=== PATIENT | male | born 1995 | race African-American/Black ===

== ENCOUNTER 2025-09-29 02:30 | Emergency (ER) | payer SELFPAY ==
[2025-09-29 02:29] VITALS: BP 107/72; PULSE 107; RESP 19; TEMP 36.6; O2SAT 100
--- NOTE | 2025-09-29 02:44 | ECG_ITS ---
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
--- NOTE | 2025-09-29 03:32 | ED.GENADULT ---
HPI - General Adult General Chief complaint: Overdose Stated complaint: unresponsive, not breathing upon EMS arrival Time Seen by Provider: 09/29/25 03:19 History of Present Illness HPI narrative: Patient 30-year-old gentleman who presents emergency department with chief complaint of overdose patient states that he took a Percocet and had some drinking tonight patient states that he was given Narcan by EMS but reports that he now feels fine Review of Systems Review of Systems: A 10 system review of systems was completed on the patient and is negative except for what is stated in the HPI. Nursing and ancillary documentation was reviewed. Exam Narrative: GENERAL: Well-appearing, well-nourished, and in no acute distress. HEAD: Normocephalic, atraumatic. EYES: PERRLA and EOMI. ENT: Nares clear, no rhinorrhea or epistaxis. Mucous membranes moist. NECK: Supple. CHEST: Clear to auscultation. No respiratory distress. HEART: Regular rate and rhythm. No murmur heard. Normal peripheral pulses. ABDOMEN: Soft, nontender, nondistended, normal active bowel sounds. EXTREMITIES: Normal range of motion. No edema. SKIN: Warm, dry, no rash. NEURO: No focal deficits. Alert and oriented x3. PSYCH: Normal mood and affect. Course Vital Signs Vital signs: Vital Signs Temperature 36.6 C 09/29/25 02:29 Pulse Rate 107 H 09/29/25 02:29 Respiratory Rate 19 09/29/25 02:29 Blood Pressure 107/72 09/29/25 02:29 Pulse Oximetry 100 09/29/25 02:29 Oxygen Delivery Room Air 09/29/25 02:29 Temperature 36.6 C 09/29/25 02:29 Pulse Rate 107 H 09/29/25 02:29 Respiratory Rate 19 09/29/25 02:29 Blood Pressure 107/72 09/29/25 02:29 Pulse Oximetry 100 09/29/25 02:29 Oxygen Delivery Room Air 09/29/25 02:29 MDM Differential Diagnosis Differential Diagnosis: Accidental opiate overdose Discharge Plan Discharge Clinical Impression: Accidental opiate poisoning Patient Disposition: Home Condition: Stable Instructions: Antibiotic Form, Adult Overdose (ED), Narcotic Use Disorder (ED) Patient Language: Indonesian Prescriptions: New naloxone [Narcan] 4 mg/actuation spray,non-aerosol 4 mg intranasal Q2-3M PRN (Reason: opioid overdose) Qty: 2 0RF Rx Instructions: spray 1 dose into ONE nostril; alternate nostrils w each dose until help arrives Time of Disposition: 03:36
[2025-09-29 03:35] VITALS: BP 97/46; PULSE 96; RESP 20; O2SAT 100
--- OUTSIDE RECORDS SUMMARY | 2025-09-29 03:49 | XMS_ITS | Patient Health Record ---
Author Organization [facility] Address [address] [place] [address] Phone [phone] Support Name Relationship Address Phone Krupa Velezmontse Self - patient is the insured [address] [place] [address] [phone] Reason For Referral No Information Social History Sex Observation Social History Observation Description Sex Observation Male Social History Drugs/Alcohol: Social Info Question Answer Notes Alcohol Screen (Audit-C) Did you have a drink containing alcohol in the past year? Yes How often did you have a drink containing alcohol in the past year? Monthly or less (1 point) How many drinks did you have on a typical day when you were drinking in the past year? 3 or 4 drinks (1 point) How often did you have 6 or more drinks on one occasion in the past year? Less than monthly (1 point) Points 3 Interpretation Negative Problems Problem Type SNOMED Code ICD Code Dates Problem Status W/U Status Risk Notes Problem Opioid dependence (92389306) Opioid use disorder, severe (F11.20) Added On: 018 Active confirmed Plan Of Treatment No Information Insurance Providers Payer Name Payer Address Payer Phone Subscriber Number Group Number Insured Name Patient Relationship to Insured Coverage Start Date Coverage End Date [address] [phone] [id number] Diane Velez Self - patient is the insured 7
--- OUTSIDE RECORDS SUMMARY | 2025-09-29 03:49 | XMS_ITS | Clinical Summary ---
Author Organization [facility] Address [address] [place] [id number] Care Team Providers Care Applications Processor Name Role Phone ParekhMichelle mcclellannne HELGA Primary Care Provider + [phone] Allergies No known active allergies Medications naproxen (NAPROSYN) 500 mg tablet Take 1 tablet (500 mg total) by mouth 2 (two) times a day with meals 30 tablet Active acetaminophen (TYLENOL) 500 mg tablet Take 1 tablet (500 mg total) by mouth every 6 (six) hours as needed for pain 30 tablet Active bacitracin 500 unit/gram ointment Apply topically 2 (two) times a day 120 g Active Active Problems No known active problems Encounters Date Type Department Care Team Description 08/03/2025 7:38 PM CDT - 08/03/2025 8:56 PM CDT Emergency [facility] Emergency Department [address] [place] [id number] Acute right ankle pain (Primary Dx); Hand pain, right; Wound infection Discharge Disposition: Discharge to home or self care from Last 3 Months Social History Tobacco Use Types Packs/Day Years Used Date Smoking Tobacco: Never Assessed Personal Safety Answer Date Recorded Have you ever been in or are you currently in a harmful physical or emotional relationship or is someone making you feel afraid or unsafe? 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 Gender Identity Not on file Sexual Orientation Not on file Last Filed Vital Signs Vital Sign Reading Time Taken Comments Blood Pressure 138/85 08/03/2025 8:54 PM CDT Pulse 83 08/03/2025 8:54 PM CDT Temperature 36.3 C (97.4 F) 08/03/2025 7:29 PM CDT Respiratory Rate 16 08/03/2025 8:54 PM CDT Oxygen Saturation 98% 08/03/2025 8:54 PM CDT Inhaled Oxygen Concentration - - Weight 53.6 kg (118 lb 2.7 oz) 08/03/2025 7:29 P M CDT Height 180.3 cm (5' 11) 08/03/2025 7:29 PM CDT Body Mass Index 16.48 08/03/2025 7:29 PM CDT Plan of Treatment Health Maintenance Due Date Last Done Comments Depression Screening 1996 Varicella Vaccines (1 of 2 - 13+ 2-dose series) 02/17/2009 Regular Well Visit/Exam 18-64 02/17/2014 HPV Vaccines (1 - 3-dose SCDM series) 02/17/2023 Covid-19 Vaccine (2 - 2024- season) 2025 05/20/2021 Influenza Vaccine (#1) 2025 DTaP/Tdap/Td Vaccine (7 - Td or Tdap) 06/12/2034 06/12/2024, 04/11/2017, 05/22/1997, Additional history exists Hepatitis B Screening Completed 1996 , 1996, 1996 Hepatitis C Screening Completed 05/28/2017 Pneumococcal vaccine <65 Aged Out No longer eligible based on patient's age to complete this topic Procedures Procedure Name Priority Date/Time Associated Diagnosis Comments XR ANKLE RIGHT 3 OR MORE VIEWS ED 08/03/2025 7:50 PM CDT XR HAND RIGHT 3 OR MORE VIEWS ED 08/03/2025 7:50 PM CDT HEPATITIS C ANTIBODY Routine 05/28/2017 1:02 AM CDT from Last 3 Months or Most Recently Relevant to Health Maintenance Results * XR Ankle Right 3+ views (08/03/2025 7:50 PM CDT) Anatomical Region Laterality Modality Lower Extremities, Ankle Right Compute d Radiography 08/03/2025 7:55 PM CDT Impressions 08/03/2025 7:55 PM CDT FINDINGS/IMPRESSION: No fracture dislocation or other acute abnormality is seen. Electronically signed by: Avelino Kaur M.D. Narrative 08/03/2025 7:55 PM CDT MEDICAL RECORDS NUMBER: [id number] PROCEDURE: XR ANKLE RIGHT 3 OR MORE VIEWS DATE: 08/03/2025 7:35 PM HISTORY: 30 years old Male. Fall VIEWS: 2 COMPARISON: None Procedure Note Avelino Kaur MD - 08/03/2025 MEDICAL RECORDS NUMBER: [id number] PROCEDURE: XR ANKLE RIGHT 3 OR MORE VIEWS DATE: 08/03/2025 7:35 PM HISTORY: 30 years old Male. Fall VIEWS: 2 COMPARISON: None IMPRESSION: FINDINGS/IMPRESSION: No fracture dislocation or other acute abnormality is seen. Electronically signed by: Avelino Kaur M.D. Cristina Walker NP IMG XR PROCEDURES Final Result * XR Hand Right 3+ views (08/03/2025 7:50 PM CDT) Anatomical Region Laterality Modality Upper Extremities, Hand Right Computed Radiography 08/03/2025 7:54 PM CDT Impressions 08/03/2025 7:54 PM CDT FINDINGS/IMPRESSION: No fracture dislocation or other acute abnormality is seen. Electronically signed by: Avelino Kaur M.D. Narrative 08/03/2025 7:54 PM CDT MEDICAL RECORDS NUMBER: [id number] PROCEDURE: XR HAND RIGHT 3 OR MORE VIEWS DATE: 08/03/2025 7:40 PM HISTORY: 30 years old Male. Fall VIEWS: 3 COMPARISON: None Procedure Note Avelino Kaur MD - 08/03/2025 MEDICAL RECORDS NUMBER: [id number] PROCEDURE: XR HAND RIGHT 3 OR MORE VIEWS DATE: 08/03/2025 7:40 PM HISTORY: 30 years old Male. Fall VIEWS: 3 COMPARISON: None IMPRESSION: FINDINGS/IMPRESSION: No fracture dislocation or other acute abnormality is seen. Electronically signed by: Avelino Kaur M.D. Cristina Walker NP IMG XR PROCEDURES Final Result * Hepatitis C antibody (05/28/2017 1:02 AM CDT) Hep C Ab NONREACT NONREACTIVE Comment: Siemens CentaurXP using HANS (chemiluminescent immunoassay) technology. NONREACTIVE: Antibodies to Hepatitis C not detected. This does not exclude early acute Hepatitis C infection, possibility of exposure to Hepatitis C, antibodies below detection limit, or to lack of antibody reactivity to the antigen used in this assay. EQUIVOCAL: Antibodies to Hepatitis C may or may not be present. Sample to be confirmed by real-time PCR method. REACTIVE: Antibodies to Hepatitis C detected. 05/28/2017 1:02 AM CDT 05/28/2017 1:07 AM CDT Narrative [facility] HISTORICAL RESULTS - 05/28/2017 2:26 AM CDT us Historical Provider LAB MICROBIOLOGY - GENERA L ORDERABLES Final Result [facility] HISTORICAL RESULTS from Last 3 Months or Most Recently Relevant to Health Maintenance Care Teams Applications Processor Relationship Specialty Start Date End Date Lyndsey Parekh NP [address] [address] [place] [address] PCP - General 08/30/20
--- OUTSIDE RECORDS SUMMARY | 2025-09-29 03:49 | XMS_ITS | Clinical Summary ---
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 Gender Identity Not on file Sexual Orientation Not on file Plan of Treatment Health Maintenance Due Date Last Done Comments Hepatitis C Virus (HCV) Screening 1996 Human Papillomavirus (HPV) Immunization (1 - 3-dose SCDM series) 02/17/2023 Influenza Immunization (#1) 2025 SARS-COV-2 Immunization ( season) 2025 Respiratory Syncytial Virus (RSV) Immunization (Adult) (1 - 1-dose 75+ series) 02/17/2071 Hepatitis B Immunization Completed 996, 1996, 1996 DTaP/Tdap/Td Immunization Discontinued 2016, 05/22/1997, 1996, Additional history exists TdaP Immunization Completed 04/11/2017 Meningococcal Immunization (ACWY) Aged Out No longer eligible based on patient's age to complete this topic Pneumococcal Immunization Combined Aged Out No longer eligible based on patient's age to complete this topic Rotavirus Immunization Aged Out No lo nger eligible based on patient's age to complete this topic
--- OUTSIDE RECORDS SUMMARY | 2025-09-29 03:49 | XMS_ITS | Data Portability ---
Author Organization [facility] Patricio Ailin Address [address] [place] [address] Care Team Providers Care Production Operations Engineer Name Role Phone KIERRA PAREKH Primary Care Provider [phone] Assessment No assessment recorded. Plan of Treatment Reminders Order Date Submit Date Provider Last Modified By Organization Details Last Modified Time Details Appointments None recorded. Lab None recorded. Referral None recorded. Procedures None recorded. Surgeries None recorded. Imaging None recorded. Medication Orders buprenorphi ne 8 mg-naloxone 2 mg sublingual film 2022 023 [id number], [address], [place], [id number], 3 18:08:52 sertraline 50 mg tablet 2021 022 [facility] #[id number], [address] [place], [place], [id number], 2 17:32:33 buprenorphi ne 8 mg-naloxone 2 mg sublingual film 2020 021 [facility] #[id number], [address], [place], [id number], 1 15:37:07 Zoloft 25 mg tablet 2020 021 [facility], [address] [place], [place], [id number], 17:31:55 Patient TargetsNo targets recorded. Patient Instructions Encounter Date Encounter Id Patient Instructions Last Modified By Organization Details Last Modified Time 11/16/2021 [id number] learning about mood disorders Not available 11/16/2021 10:36:49 I reveiwed the students written documentation. I reviewed and repeated jimenez components of the history and exam. Kierra Parekh MD Not available 11/16/2021 11:10:13 Reason for Referral None Reported. Results Created Date Observation Date Name Description Value Unit Range Abnormal Flag Note LastModifiedBy Organization Detail LastModifiedTime 06/08/2006/15/2023 COMPL IANCE DRUG PAULINA SIS, UR summary report (summary) FINAL ===== ===== ===== ===== ===== ===== ===== ===== ===== ===== ===== ===== ===== === TOXAS SURE COMP DRUG PAULINA SIS,U R ===== ===== ===== ===== ===== ===== ===== ===== ===== ===== ===== ===== ===== === Test Resul t Flag Units Drug Prese nt Benzo ylecg onine >4098 ng/mg creat Benzo ylecg onine is a metab olite of cocai ne; its prese nce indic ates use of this drug. Sourc e is most commo nly illic it, but cocai ne is prese nt in some topic al anest hetic solut ions. Carbo xy-TH C >820 ng/mg creat Carbo xy-TH C is a metab olite of tetra hydro canna binol (THC) . Sourc e of THC is most commo nly herba l marij uana or marij uana- based produ cts, but THC is also prese nt in a sched uled presc ripti on medic ation . Trace amoun ts of THC can be prese nt in hemp and canna bidio l (CBD) produ cts. This test is not inten ded to disti nguis h betwe en delta -9-te trahy droca nnabi nol, the predo minan t form of THC in most herba l or marij uana- based produ cts, and delta -8-te trahy droca nnabi nol. Bupre norph ine 70 ng/mg creat Norbu preno rphin e 137 ng/mg creat Sourc e of bupre norph ine is a sched uled presc ripti on medic ation . Norbu preno rphin e is an expec bryce metab olite of bupre norph ine. ===== ===== ===== ===== ===== ===== ===== ===== ===== ===== ===== ===== ===== === Test Resul t Flag Units Ref Range Creat inine 122 mg/dL >=20 ===== ===== ===== ===== ===== ===== ===== ===== ===== ===== ===== ===== ===== === Decla red Medic ation s: Medic ation list was not provi ded. ===== ===== ===== ===== ===== ===== ===== ===== ===== ===== ===== ===== ===== === For clini nita consu ltati on, pleas e call . ===== ===== ===== ===== ===== ===== ===== ===== ===== ===== ===== ===== ===== === Not Available [facility] ([facility]) [address], [place], [address], 06/15/2023 14:13:15 06/08/2006/15/2023 COMPL DIMPLE DRUG PAULINA SIS, UR pdf . Not Available [facility] ([facility]) [address], [place], [address], 06/15/2023 14:13:15 Result Notes None recorded. Problems Name Problem SNOMED Code Status Onset Date Resolution Date Notes Provider Name and Address Organization Details Recorded Time Opioid dependence 05037727 Active 022 Sav Purvis Attn: Agapitosylvain hightower,[address], [place], [address], [facility] 11:07:49 Problem Notes None recorded. Medical Equipment None Reported. Allergies No known drug allergies Medications Name Sig Start Date Stop Date Status Note LastModified by Organization Details LastModified Time amoxicill in 500 mg capsule TK ONE C PO Q 8 H TAT 07/26 completed Not Available Not Available Not Available acetamino phen 325 mg tablet TK 2 TS PO Q 6 H PRN P 07/26 completed Not Available Not Available Not Available clindamyc in HCl 300 mg capsule active Not Available Not Available Not Available ibuprofen 800 mg tablet 07/26 completed Not Available Not Available Not Available penicilli n V potassium 500 mg tablet TK 1 T PO BID 07/26 completed Not Available Not Available Not Available hydroxyzi ne HCl 50 mg tablet active Not Available Not Available No t Available acetamino phen 300 mg-codein e 30 mg tablet TK 1 T PO Q 4 H PRN P 07/26 completed Not Available Not Available Not Available amoxicill in 500 mg tablet TK 1 T PO Q 8 H TAT 07/26 completed Not Available Not Available Not Available ketorolac 10 mg tablet active Not Available Not Available Not Available sertralin e 25 mg tablet TAKE 1 TABLET BY MOUTH EVERY DAY active Not Available Not Available No t Available ibuprofen 600 mg tablet TAKE 1 TABLET BY MOUTH EVERY 6 HOURS NEEDED FOR PAIN active Not Available Not Available No t Available sertralin e 50 mg tablet Take 1 tablet every day by oral route. 03/21 completed Not Available Not Available Not Available doxycycli ne hyclate 100 mg tablet TAKE 1 TABLET BY MOUTH TWICE A DAY FOR 7 DAYS active Not Available Not Available No t Available amoxicill in 875 mg-potass ium clavulana te 125 mg tablet 07/26 completed Not Available Not Available Not Available buprenorp malu 8 mg-naloxo ne 2 mg sublingua l film DISSOLVE 1 FILM UNDER THE TONGUE EVERY DAY active pt informed he must submit urine for UDS prior to refill. He is to alert staff when done. Not Available Not Available Not Available ID NOW COVID-19 Test Kit TEST DIRECTED TODAY active Not Available Not Available No t Available Vitals Date Recorded Body height Body mass index (BMI) Body weight Body temperature Oxygen saturation Heart rate Systolic And Diastolic Provider Name and Address Organization Details Last Updated DateTime 2 177.8 cm 17.8 kg/m2 28171.9 5 g 98.8 [degF] 98 % 85 /min 118/58 mm[Hg] Norm Esquivel MA [facility] 2 09:34:44 Date Recorded Body height Body mass index (BMI) Body weight Heart rate Oxygen saturation Systolic And Diastolic Provider Name and Address Organization Details Last Updated DateTime 2 177.8 cm 16.9 kg/m2 58408.4 6 g 79 /min 98 % 100/58 mm[Hg] Helga Mcgill MA [facility] 2 16:55:35 Date Recorded Body height Body mass index (BMI) Body weight Body temperature Oxygen saturation Heart rate Systolic And Diastolic Provider Name and Address Organization Details Last Updated DateTime 3 177.8 cm 17.3 kg/m2 32230.8 3 g 97.7 [degF] 99 % 57 /min 103/62 mm[Hg] Lou Bran MA [facility] 3 12:22:45 Date Recorded Body height Body mass index (BMI) Body weight Body temperature Heart rate Oxygen saturation Systolic And Diastolic Provider Name and Address Organization Details Last Updated DateTime 2 177.8 cm 17.5 kg/m2 52639.2 7 g 98.6 [degF] 86 /min 99 % 130/72 mm[Hg] Ashley Suh CMA [place] - [facility] 2 17:38:46 Date Recorded Body height Body mass index (BMI) Body weight Heart rate Body temperature Systolic And Diastolic Provider Name and Address Organization Details Last Updated DateTime 1 177.8 cm 18.1 kg/m2 66384.0 4 g 58 /min 97.8 [degF] 104/48 mm[Hg] Rober Melodo [place] - [facility] 1 15:07:20 Social History Question Answer Notes LastModified by Organizat ion Details LastModified Time Tobacco Smoking Status Current Every Day Smoker France Brandt MA null, [place] - [facility] 06/24/2021 16:20:33 What Was The Date Of Your Most Recent Tobacco Screening? 06/08/2023 [email or web address] Information not available 06/08/2023 What Is Your Relationship Status? Single Information not available 06/24/2021 Do You Have Smoke And Carbon Monoxide Detectors In Your Home? Yes Information not available 06/24/2021 At What Age Did You Start Smoking Tobacco? 16 Information not available 09/27/2022 Are You Passively Exposed To Smoke? Yes Information no t available 06/24/2021 How Much Tobacco Do You Smoke? 0.5 PPD Information not available 09/27/2022 Sex: Unknown Functional Status Question Answer Note LastModified by Organizat ion Details LastModified Time Do you use any illicit or recreational drugs? Yes marijuana Information not available 09/27/2022 What is your level of alcohol consumption? None Information not available 06/24/2021 Mental Status None recorded. Family History Nothing Reported. Medical History No medical history recorded. Immunizations Vaccine Type Date Status Note Provider Nam e and Address Organization Details Recorded Time Tdap 04/11/2017 completed AM[facility] Fu, [place] - [facility] 09/27/2022 17:31:04 COVID-19, mRNA, LNP-S, PF, 30 mcg/0.3 mL dose 05/20/2021 completed AMRITA Gant, [place] - [facility] 05/20/2021 17:53:18 Past Encounters Encounter ID Performer Location Encounter Start Date Encounter Closed Date Diagnosis/Indication Diagnosis SNOMED-CT Code Diagnosis ICD10 Code Diagnosis IMO Codes Diagnosis Note [id number] MD Enoch Purvis [address] [address] 05/20/2021 17:05:07 06/07/2021 10:24:32 Administration of SARS-CoV-2 antigen vaccine 425353935 Z23 [id number] Kierra Parekh MD mali [address] [address] 06/24/2021 15:25:11 06/25/2021 09:25:29 Opioid dependence 39588177 F11.20 Discussed dx and tx options. Did a contract, urine drug screen and advised him to get an appointmen t with therapy and with Shaquille Purdy to discuss continue care and support. Follow up in one month. [id number] MD Enoch Purvis [address] [address] 07/26/2021 14:59:42 07/27/2021 10:19:07 Opioid dependence 94154597 F11.20 Discussed dx and tx options. doing well gave support and encouraged therapy. [place] Z63 .4 gave support and will continue close follow up [id number] MD Enoch Purvis [address] [address] 09/28/2021 14:33:43 09/29/2021 09:01:58 Underweight 946572794 R63.6 Opioid dependence 622239 00 F11.20 Discussed dx and tx options. doing well gave support and encouraged therapy. [place] Z63 .4 Discussed progress - seems to be worse and he feels he could need some support during this transition time. Will start zoloft and follow up in one month [id number] MD Enoch Purvis [address] [address] 11/16/2021 09:24:44 11/18/2021 09:01:14 Underweight 473044358 R63.6 Pt reports no increased weight loss, but has continued decreased appetite 2/2 depression Plan- will increase Sertraline from 25mg to 50mg QD Opioid dependence 639830 00 F11.20 Discussed dx and tx options. doing well gave support and encouraged therapy. No reported cravings Plan- continue Suboxone 8mg 2mg Depressive disorder 3548 9007 F32.A Pt reporting ongoing depressed mood, decreased appetite, and sleep disturbanc es despite starting Sertraline 25mg after last visit on 09/28 Plan- Increase Sertaline to 50mg QD [id number] [facility] [address] [address] 03/21/2022 16:46:54 03/24/2022 13:17:18 Underweight 426097580 R63.6 Pt reports no increased weight loss, but has continued decreased appetite 2/2 depression Opioid dependence 119025 F11.20 Discussed dx and tx options. doing well gave support and encouraged therapy. No reported cravingsEn couraged to get a lock boxPlan- continue Suboxone 8mg 2mg Depressive disorder 3547 F32.A Pt reporting ongoing depressed mood, decreased appetite, and sleep disturbanc es despite starting Sertraline 25mg a [id number] Kierra Parekh MD [place] [address] [address] [address] 09/27/2022 17:21:05 09/29/2022 16:14:06 Underweight 129596669 R63.6 Pt reports no increased weight loss, but has continued decreased appetite 2/2 depression Opioid dependence 985346 00 F11.20 Discussed dx and tx options. doing well gave support and encouraged therapy. No reported cravingsEn couraged to get a lock boxPlan- continue Suboxone 8mg 2mg 1/2 BID Depressive disorder 8 7 F32.A doing well not on anything at this time and working [id number] Kierra Parekh MD [place] [address] [address] [address] 06/08/2023 12:10:18 06/09/2023 14:32:25 Opioid dependence 32365536 F11.20 Discussed dx and tx options. doing well gave support and encouraged therapy. No reported cravingsEn couraged to get a lock boxPlan- continue Suboxone 8mg 2mg 1/2 BID Contact: 05/[place] No change in medication . Will follow up with UDS and if positive for any other substances will give a warning and repeat in 3 months before next fill Health Concerns Section Related Observation LastModified by Organization Detai ls LastModified Time None Recorded Concern Status LastModified by Organization Details LastModified Time None Recorded Advance Directives Directive None Recorded Payers Insurance Date Sequence Insurance Name Policy Number Policy Smith Covered Member ID Smith Member ID Guarantor Name 11/11/2024 1 [facility] ON OR AFTER 04/08/21 (MEDICAID REPLACEMENT - HMO) Diane Velez [id number] Diane Velez 11/11/2024 2 [facility] ON OR AFTER 04/08/21 (MEDICAID REPLACEMENT - HMO) Diane Velez [id number] Diane Velez 11/11/2024 1 [facility] PRIOR TO 04/08/2021 (MEDICAID REPLACEMENT - HMO) Diane Velez [id number] Diane Velez 06/20/2025 1 [facility] ON OR AFTER 09/08/2020 (MEDICAID REPLACEMENT - HMO) Diane Velez [id number] Diane Velez Notes Date Note Type Note Provider Name and Address Organization Details Recorded Time 1 text/html Generic HPI TemplateReported by PatientPatient presents to clinic with worsening symptoms of anxiety and depression. He takes Suboxone 8mg-2mg once a day. He has taken an extra dose 3 days this month due to his anxiety and depression. Anxiety/DepressionReport ed by PatientHPIFor quality, patient reportssymptoms worse in the eveningandincreased anxiety. For context, patient reportsmajor life stressors,family problems,relationship stress, andbereavement. For associated symptoms, patient reportsloneliness,grievi ng,insomnia, andsleep disturbancesbut reportsdenies homicidal ideations,no significant weight gain,no significant weight loss,no visual/auditory hallucinations, andno delusions. For severity, patient reportsdenies suicidal ideations,able to maintain relationships, anddoes not interfere with activities of daily living. For duration, patient reportsinfrequentandfreq uent. For onset/timing, patient reportssudden (at the of his girl friend). For modifying factors, patient reportssocial support.phq 9- 10ROS as noted in the HPI Kierra Parekh MD Attn: Accounting,[address], [place], [address], [facility] 09/28/2021 16:34:20 2 text/html Diane Velez is a 26 yo male with h/o opioid dependence here for a follow up visit. Pt was last seen in clinic on 09/28/21 and changes made at that time including starting Zoloft. Pt reports that he has been Zoloft and feels that it has helped with his mood, although he still reports that most days he is only feeling alright and has continued issues with decreased appetite and difficulty sleeping. He states that he is only able to eat a few bites of food in one sitting and there have been several days in the last week in which he did not eat anything. He also reports difficulty staying asleep and feels as though he is spending most of the night tossing and turning. He notes that he recently started a new job at a [employer] that has shifted his routine and he is now working 5pm to 3am, which has also been affecting his sleep. Pt denies any concerns with the Suboxone and denies feeling any cravings. Kierra Parekh MD Attn: Accounting,[address] [facility], [place], [address], [facility] 11/16/2021 11:10:32 2 text/html Generic HPI TemplateReported by PatientPatient presents to clinic with worsening symptoms of anxiety and depression. He takes Suboxone 8mg-2mg once a day. He has taken an extra dose 3 days this month due to his anxiety and depression. Anxiety/DepressionReport ed by PatientHPIFor quality, patient reportssymptoms worse in the eveningandincreased anxiety. For context, patient reportsmajor life stressors,family problems,relationship stress, andbereavement. For associated symptoms, patient reportsloneliness,grievi ng,insomnia, andsleep disturbancesbut reportsdenies homicidal ideations,no significant weight gain,no significant weight loss,no visual/auditory hallucinations, andno delusions. For severity, patient reportsdenies suicidal ideations,able to maintain relationships, anddoes not interfere with activities of daily living. For duration, patient reportsinfrequentandfreq uent. For onset/timing, patient reportssudden (at the of his girl friend). For modifying factors, patient reportssocial support.phq 9- 10ROS as noted in the HPI Kierra Parekh MD Attn: Accounting, [place], [address], [facility] 03/27/2022 11:55:54 2 text/html Generic HPI TemplateReported by PatientMood improving- He takes Suboxone 8mg-2mg once a day. He reports feeling that he might need something a little in the afternoon. Anxiety/DepressionReport ed by PatientHPIFor quality, patient reportssymptoms worse in the eveningandincreased anxiety. For context, patient reportsmajor life stressors,family problems,relationship stress, andbereavement. For associated symptoms, patient reportsloneliness,grievi ng,insomnia, andsleep disturbancesbut reportsdenies homicidal ideations,no significant weight gain,no significant weight loss,no visual/auditory hallucinations, andno delusions. For severity, patient reportsdenies suicidal ideations,able to maintain relationships, anddoes not interfere with activities of daily living. For duration, patient reportsinfrequentandfreq uent. For onset/timing, patient reportssudden (at the of his girl friend). For modifying factors, patient reportssocial support.ROS as noted in the HPI Kierra Parekh MD Attn: Accounting, [place], [address], [facility] 09/28/2022 11:08:21 3 text/html Generic HPI TemplateReported by PatientReports that with the medication he really doesn't have too many urges to use. He has had a significant family trauma with the of a house hold child. He does report that over the weekend he did go to a alliance party and used a few recreational substances. He wasn't specific. He understands that this is not allowed when on medications. He also has a new job and should not use illegal substances. Anxiety/DepressionReport ed by PatientHPIFor quality, patient reportssymptoms worse in the eveningandincreased anxiety. For context, patient reportsmajor life stressors,family problems,relationship stress, andbereavement. For associated symptoms, patient reportsloneliness,grievi ng,insomnia, andsleep disturbancesbut reportsdenies homicidal ideations,no significant weight gain,no significant weight loss,no visual/auditory hallucinations, andno delusions. For severity, patient reportsdenies suicidal ideations,able to maintain relationships, anddoes not interfere with activities of daily living. For duration, patient reportsinfrequentandfreq uent. For onset/timing, patient reportssudden (at the of his girl friend). For modifying factors, patient reportssocial support.ROS as noted in the HPI Kierra Parekh MD Attn: Accounting,[address] [facility], [place], [address], [place] [facility] 06/08/2023 16:41:07
[2025-09-29 04:32] VITALS: BP 106/75; PULSE 87; RESP 14; O2SAT 98
== END 2025-09-29 04:05 | disposition home or self-care (01) ==
PROVIDERS: Emergency Provider Emergency Medicine
DX: T40.2X1A Poisoning by other opioids, accidental (unintentional), initial encounter (principal)
CPT/HCPCS: 93005; 99283